=== PATIENT | female | born 1995 | race Caucasian/White ===

== ENCOUNTER 2016-06-01 12:11 | Emergency (ER) | payer SELFPAY ==
[2016-06-01 13:00] VITALS: BP 127/74
== END 2016-06-01 13:00 | disposition left against medical advice (07) ==
LOC: ED 12:11
DX: M25.569 Pain in unspecified knee (principal); M25.579 Pain in unspecified ankle and joints of unspecified foot; Z53.21 Procedure and treatment not carried out due to patient leaving prior to being seen by health care provider